=== PATIENT | male | born 1960 | race Caucasian/White ===

== ENCOUNTER → 2018-01-07 14:54 | Outpatient (CLI) | payer OTHER, SELFPAY ==
--- NOTE | 2018-01-07 14:58 | MR_ITS ---
MR lumbar spine wo con, MR 3-d myelogram/MRCP Ordering Physician: Edita Bradshaw Patient Age: 57 years: Male HISTORY: ITS.REASON: SCIATICA OF RIGHT SIDE, LOW BACK PAIN 3 weeks ago episode of low back pain right side pain right buttocks and right groin. Hard to move foot pain numbness and tingling down right leg. TECHNIQUE: Sagittal STIR, T1, T2, axial T1 and T2. On 1.5T Siemens wide bore MRI. 3-D MR myelogram image set obtained & performed on MRI workstation. Additional sagittal thin section T2 weighted dataset obtained from this latter acquisition as well (---76 CPT) COMPARISON :June 2015 MRI L-spine FINDINGS no significant change since previous 2014 exam. No disc herniation. Vertebral bodies are intact and the disc spaces overall well-maintained with only slight loss of hydration & scant narrowing at L4/5 L5/S1. Disc intact with only slightly more generous towards left foramen. Unchanged... Bilateral Facet hypertrophy does yield moderate foraminal encroachment bilateral . L4/5. Slight loss of disc hydration disc hydration with slight disc space narrowing posteriorly. Mild disc bulge posteriorly on most notable towards the foramen. This along with moderate/generous facet hypertrophy yields mild/moderate bilateral foraminal encroachment., And does yield slight narrowing of the thecal sac and spinal canal. Appearance approaching borderline spinal stenosis. Just superior to the L4/5 disc there is a subtle, minor central spur or vertical ridge posterior aspect of L4 inferiorly. This minor feature only just abuts the thecal sac at midline. This is seen on previous studies and unchanged. L3/4. Disc intact. Unremarkable neural foramen widely patent. L2/3 disc intact. Disc intact at L1/2, T12/L1 1 and T11/12 disc.. Generous anterior marginal osteophytes are again seen throughout the L-spine most notable L2/3 L3/4 and to lesser L4/5. These are associated with anterior bulging of the disc which is most pronounced at L4/5 The 3-D MR myelogram image set appears similar. The does demonstrate some mild tapering of the spinal canal at L4/5 due to the facet hypertrophy. Appearance approaching borderline spinal stenosis . The mild dependent edema throughout subcutaneous tissues of the back is similar to previous study. . IMPRESSION: --------- No disc herniation & No significant change since previous MR study. L4/5. Generous Facet hypertrophy along with mild disc bulge, yields tapering & slight narrowing the spinal canal this level,, along with Mild/moderate bilateral foraminal encroachment. Overall findings are similar versus previous 2015 exam...... No remarkable change L4/5.. Generous facet hypertrophy yields mild/moderate bilateral foraminal encroachment at this level. No significant change
== END ==
PROVIDERS: Family Provider Nurse Practitioner; PCP Nurse Practitioner; Visit Provider Nurse Practitioner
DX: M54.31 Sciatica, right side (principal); M54.5 Low back pain
CPT/HCPCS: 72148; 76376

== ENCOUNTER → 2020-01-28 07:59 | Outpatient (CLI) | payer OTHER, SELFPAY ==
--- NOTE | 2020-01-28 | XR_ITS ---
PROCEDURE: XR KNEE RT 3V CLINICAL INDICATION: RIGHT KNEE PAIN COMPARISON: No exams were available for comparison FINDINGS: No fracture or dislocation. No lytic or blastic change. There is normal mineralization. Minimal osteoarthritic changes are present at the medial compartment and there is some minimal spurring of the lateral tibial spine. There is some increased soft tissue density in the suprapatellar region suggesting small knee joint effusion with mild osteoarthritic change at the patellofemoral joint. Other findings:None. IMPRESSION: Mild osteoarthritis with suspected small knee joint effusion Dictated by: Domenic Javier MD 01/28/2020 08:28 Electronically signed by Domenic Javier MD in [place] 01/28/2020 08:28
== END ==
PROVIDERS: PCP Nurse Practitioner; Visit Provider Nurse Practitioner
DX: M25.561 Pain in right knee (principal)
CPT/HCPCS: 73562

== ENCOUNTER → 2021-07-05 15:28 | Outpatient (POV) | payer OTHER, SELFPAY | PROVIDERS: Visit Provider Dermatology | DX: Z00.00 Encounter for general adult medical examination without abnormal findings (principal) ==

== ENCOUNTER 2023-06-27 08:09 | Day surgery (SDC) | payer OTHER, SELFPAY ==
[2023-04-26 13:20] VITALS: BMI 34.6
--- NOTE | 2023-06-27 08:42 | EXP.ANES.CKL ---
[facility] Disclaimer: The information contained in this section may have been updated after the patient was seen, as this information can be updated by other users. Medical History Hx of seasonal allergies Hypertension Surgical History History of colonoscopy Family History Father Prostate cancer Mother Family history of stroke Social History Smoking Status: Never smoker alcohol intake: never substance use type: denies use current occupational status: employed Travel in the last 8 weeks: None household members: spouse housing: house lives independently: No marital status: education level: college service: Yes status: retired branch: [employer] current occupational exposures/hazards: No caffeine: Yes [facility] Anesthesia Checklist Patient Identification Patient Identification: Arm Band and Verbal (Name & ) Structural Data Admitted From: Home Planned Operative Procedure/s: Colonoscopy Consent for Planned Operative Procedure(s) Verified: Yes NPO Status Verified Time NPO: 00:00 Additional verifications Anesthesia Reactions: No Airway Assessment Mallampati Score:: Class III C-Spine Mobility Assessed: Yes TMJ Mobility Assessed: Yes Dentition: Good Dentition Neurological Assessment Level of Consciousness: Awake Hx Seizures: No Numbness or tingling in extremities: No Anesthesia Plan Anesthesia Risk discussed: Yes Anesthesia Plan: Verified ASA Class: II Anesthesia Type: MAC
[2023-06-27 08:50] VITALS: BP 143/65; PULSE 73; RESP 18; TEMP 36.6; O2SAT 94
--- NOTE | 2023-06-27 10:06 | HMH.SCOPE ---
Procedure: Date: 06/27/23 Patient Date of :: 1960 Procedure Performed:: Colonoscopy Indications:: The patient is a 63 year old who presents for screening colonoscopy. The patient reports last colonoscopy 10 years ago. There may be a history of 1-2 colon polyps removed, the patient was not sure. There is no family history of colon cancer Performing Provider:: Dillon Mendiola MD Referring Provider:: LALA Salcedo MD Sedation:: See RN records Procedure:: After placing the patient in the left lateral decubitus position, the colonoscopy was gently inserted into the rectum and under direct visualization advanced to the cecum which was identified by transillumination in the right lower quadrant, identification of the ileocecal valve, appendiceal orifice, and cecal strap. Color, texture, mucosa, and anatomy of the colon were carefully examined with the scope. Findings:: Anal canal: normal Rectum: Hemorrhoids, hypertrophic papilla Sigmoid colon: normal without polyps or inflammatory changes Descending colon: normal without polyps or inflammatory changes Splenic flexure: normal Transverse colon: normal without polyps or inflammatory changes Hepatic flexure: normal Ascending colon: normal without polyps or inflammatory changes Cecum: normal Terminal ileum: not visualized Impression: Normal appearing colon Recommendations:: Repeat colooscopy in 10 years or sooner if clinically indicated Complications:: None Estimated blood obtained (mL): 0 Colonoscopy Component Colonoscopy Component Was a colonoscopy performed during today's procedure?: Yes Recommended follow up colonoscopy of at least 10 years?: Yes
[2023-06-27 10:10] VITALS: BP 72/40; PULSE 80; RESP 12; TEMP 36.4; O2SAT 92
[2023-06-27 10:20] VITALS: BP 42/26; PULSE 80; RESP 10; O2SAT 90
[2023-06-27 10:28] VITALS: BP 98/73; PULSE 91; RESP 14; O2SAT 95
[2023-06-27 10:30] VITALS: BP 111/56; PULSE 87; RESP 16; O2SAT 93
[2023-06-27 10:45] VITALS: BP 105/67; PULSE 82; RESP 16; O2SAT 97
--- NOTE | 2023-06-27 10:46 | SUR.PHASEII ---
1020- Sunita Alcantar RADIOLOGIC TECHNOLOGIST MAMMOGRAM called to bedside for b/p of 42/26. Patient repositioned and b/p rechecked with result of 60/40. Medication administered by RADIOLOGIC TECHNOLOGIST MAMMOGRAM at this time for low b/p. b/p recycled after 3 minutes and b/p now at 98/73. VSS at this time 1028.
== END 2023-06-27 10:50 | disposition home or self-care (01) ==
PROVIDERS: PCP Family Medicine; Visit Provider Internal Medicine
PROC: (CPT 45378; principal; 2023-06-27 09:30)
DX: Z12.11 Encounter for screening for malignant neoplasm of colon (principal); Z86.010 Personal history of colon polyps; K64.8 Other hemorrhoids
CPT/HCPCS: 45378; J2704